=== PATIENT | female | born 1985 | race Caucasian/White ===

== ENCOUNTER 2022-01-28 19:01 | Inpatient (IN) ==
[2022-01-28] MEDS ORDERED: Metoclopramide 10 MG/2 ML VIAL IVP PRN (19:50)
[2022-01-28] MEDS ORDERED: Naloxone 0.4 MG/ML INJ IVP PRN (19:50)
[2022-01-28] MEDS ORDERED: *HR* Nalbuphine 10 MG/ML AMPUL IV PRN (19:50)
[2022-01-28] MEDS ORDERED: Famotidine 20 MG/2 ML VIAL IVP PRN (19:50)
[2022-01-28] MEDS ORDERED: Azithromycin 500 MG in 0.9 % Sodium Chloride 250 ML IVPB PRN (19:50)
[2022-01-28] MEDS ORDERED: Penicillin G Potassium 5,000,000 UNIT in 0.9 % Sodium Chloride Mini Bag 100 ML IVPB ONE (20:15)
[2022-01-28 20:20] LABS: Basophils % 0.3 %; Eosinophils # 0.1 K/mcL (0.0-0.6); Eosinophils % 0.7 %; Hematocrit 34.5 % (35.3-44.9); Hemoglobin 11.9 g/dL (11.5-15.4); Lymphocytes # 1.8 K/mcL (0.6-4.6); Lymphocytes % 16.5 %; Mean Corpuscular HGB Conc 34.5 g/dL (31.6-35.5); Mean Corpuscular Hemoglobin 29.7 pg (28.0-33.3); Mean Platelet Volume 10.9 fL (9.4-12.4); Monocytes # 0.7 K/mcL (0.0-1.3); Monocytes % 6.2 %; Neutrophils # 8.1 K/mcL (1.6-8.9); Platelet Count 256 K/mcL (140-400); Red Blood Count 4.01 M/mcL (3.82-4.97); Segmented Neutrophils % 75.3 %; White Blood Count 10.7 K/mcL (4.3-11.1)
[2022-01-28 20:39] LABS: Alanine Aminotransferase 8 Units/L (7-52); Aspartate Amino Transferase 13 Units/L (13-39); BUN/Creatinine Ratio 9 (6-26); Blood Urea Nitrogen 5 mg/dL (6-20); Glucose 97 mg/dL (70-105); Influenza A PCR Negative (Negative); Influenza B PCR Negative (Negative); Lactate Dehydrogenase 68 Units/L (140-271); Resp. Syncytial Virus PCR Negative (Negative); Uric Acid 4.4 mg/dL (2.3-7.6); eGFR For African Americans > 60 (> 60); eGFR For Non-African Americans > 60 (> 60)
[2022-01-28 20:40] LABS: SARS-CoV-2 by PCR (In House) Negative (Negative)
[2022-01-28] MEDS: Ringers Solution, Lactated 1,000 ML IVC SCH (20:59)
[2022-01-28] MEDS ORDERED: EPHEDrine 50 MG/ML VIAL IVP PRN (21:35)
[2022-01-28] MEDS: miSOPROStoL 25 MCG TABLET PO PRN (21:36)
[2022-01-28] MEDS: *HR* Metformin 500 MG TABLET PO SCH (22:24)
[2022-01-28] MEDS ORDERED: Calcium Gluconate 1,000 MG/10 ML VIAL IVP PRN (22:36)
[2022-01-28 23:33] LABS: Bacteria,Urine Few per hpf (None-Few); Bilirubin,Urine Negative (Negative); Blood,Urine Negative (Negative); Clarity,Urine Turbid (Clear); Color,Urine Yellow (Yellow); Glucose,Urine (UA) Normal (Normal); Ketones,Urine 20 mg/dL (Negative); Leukocyte Esterase,Urine Negative (Negative); Mucus,Urine Many per lpf (None-Few); Nitrite,Urine Negative (Negative); PH,Urine 6.5 pH Units (5.0-8.0); Protein,Urine 50 mg/dL (Neg-Trace); Specific Gravity,Urine 1.024 (1.010-1.025); Squamous Epithelial Cell,Urine Few per hpf (None-Few)
[2022-01-28 23:42] LABS: Amphetamine Screen,Urine Negative ng/mL (Cutoff=1000); Barbiturate Screen,Urine Negative ng/mL (Cutoff=200); Benzodiazepines Screen,Urine Negative ng/mL (Cutoff=200); Cannabinoid Screen,Urine Negative ng/mL (Cutoff = 50); Cocaine Screen,Urine Negative ng/mL (Cutoff= 300); Creatinine,Urine 220 mg/dL; Opiate Screen,Urine Negative ng/mL (Cutoff=300); Phencyclidine Screen,Urine Negative ng/mL (Cutoff=25); Protein/Creatinine Ratio,Urine 0.26 mg/mg (0.00-0.20)
[2022-01-29] MEDS: Magnesium Sulf 20 gm/SW 500mL 20 GM/500 ML IV.SOLN IVC SCH ×2 (00:03→09:58)
[2022-01-29] MEDS: miSOPROStoL 25 MCG TABLET PO PRN (01:45)
[2022-01-29] MEDS ORDERED: miSOPROStoL 25 MCG TABLET PO ONE (05:37)
[2022-01-29] MEDS: Penicillin G Potassium 2,500,000 UNIT/105 ML MLS IVPB SCH ×5 (08:56→21:03)
[2022-01-29] MEDS: Epidural Premix (fent/bupiv) 110 ML EP SCH ×3 (08:56→14:16)
[2022-01-29] MEDS: 0.9 % Sodium Chloride 1,000 ML IVC SCH (08:57)
[2022-01-29] MEDS: *HR* Metformin 500 MG TABLET PO SCH (09:04)
[2022-01-29] MEDS: Oxytocin 20 units/ LR 1000 mL 20 UNIT/1,000 ML BAG IVC SCH (09:49)
[2022-01-29] MEDS: Ondansetron 4 MG/2 ML VIAL IVP PRN (10:34)
[2022-01-29] MEDS: Acetaminophen 325 MG TABLET PO PRN ×2 (10:55→16:53)
[2022-01-29] MEDS: Ringers Solution, Lactated 1,000 ML IVC SCH ×2 (13:07→18:25)
[2022-01-29] MEDS ORDERED: Acetaminophen 325 MG TABLET PO STA (16:45)
[2022-01-29] MEDS ORDERED: Acetaminophen/Butalbital/CaffeineTABLET PO PRN (19:55)
[2022-01-29] MEDS ORDERED: *HR* Metformin 500 MG TABLET PO SCH (21:00)
[2022-01-29] MEDS ORDERED: Metoclopramide 10 MG/2 ML VIAL IVP ONE (21:10)
[2022-01-30] MEDS ORDERED: diazePAM 10 MG/2 ML SYRINGE IVP PRN (08:36)
[2022-01-30] MEDS: Ringers Solution, Lactated 1,000 ML IVC SCH ×2 (08:46→09:39)
[2022-01-30] MEDS: Magnesium Sulf 20 gm/SW 500mL 20 GM/500 ML IV.SOLN IVC SCH (08:46)
[2022-01-30] MEDS: Epidural Premix (fent/bupiv) 110 ML EP SCH ×2 (08:47→11:25)
[2022-01-30] MEDS: Penicillin G Potassium 2,500,000 UNIT/105 ML MLS IVPB SCH ×3 (08:47→19:25)
[2022-01-30] MEDS: Oxytocin 20 units/ LR 1000 mL 20 UNIT/1,000 ML BAG IVC SCH ×3 (08:55→19:28)
[2022-01-30] MEDS: Ondansetron 4 MG/2 ML VIAL IVP PRN (09:42)
[2022-01-30] MEDS ORDERED: Famotidine 20 MG/2 ML VIAL IVP STA (09:53)
[2022-01-30] MEDS ORDERED: *HR* FentaNYL (PF) 100 MCG/2 ML VIAL ONE ×3 (12:27→16:49)
[2022-01-30] MEDS ORDERED: Ropivacaine/PF 0.2% 20 ML VIAL ONE (12:27)
[2022-01-30] MEDS ORDERED: Ondansetron 4 MG/2 ML VIAL ONE (14:40)
[2022-01-30] MEDS ORDERED: Chloroprocaine 3%/PF 20 ML VIAL INFILT ONE (14:40)
[2022-01-30] MEDS ORDERED: Acetaminophen IV 1,000 MG/100 ML BAG IVPB ONE (14:46)
[2022-01-30] MEDS ORDERED: CeFAZolin 2,000 MG/120 ML BAG IVPB ONE (15:00)
[2022-01-30] MEDS ORDERED: Ringers Solution, Lactated 1,000 ML ONE (15:19)
[2022-01-30] MEDS ORDERED: Lidocaine/EPI 1:200k 2% PF 20 ML VIAL ONE (15:24)
[2022-01-30] MEDS ORDERED: *HR* Morphine Sulfate/PF 10 MG/10 ML AMPUL ONE (15:35)
[2022-01-30] MEDS ORDERED: *HR* Phenylephrine 10 MG/ML VIAL ONE (15:46)
[2022-01-30] MEDS ORDERED: Ondansetron 4 MG/2 ML VIAL IVP PRN ×2 (16:00→17:03)
[2022-01-30] MEDS ORDERED: *HR* HYDROmorphone PF 0.5 MG/0.5 ML SYRINGE IVP PRN (16:00)
[2022-01-30] MEDS ORDERED: Ketamine *HR* 500 MG/10 ML MDV ONE (16:14)
[2022-01-30] MEDS ORDERED: *HR* Midazolam HCl 2 MG/2 ML VIAL ONE (16:31)
[2022-01-30] MEDS ORDERED: Ketorolac 30 MG/ML VIAL ONE (16:49)
[2022-01-30] MEDS ORDERED: Ringers Solution, Lactated 1,000 ML IVC SCH (17:03)
[2022-01-30] MEDS ORDERED: Metoclopramide 10 MG/2 ML VIAL IVP PRN (17:03)
[2022-01-30] MEDS ORDERED: Simethicone 80 MG TAB.CHEW PO PRN (17:03)
[2022-01-30] MEDS ORDERED: Oxytocin 20 units/ LR 1000 mL 20 UNIT/1,000 ML BAG IVC SCH (17:03)
[2022-01-30] MEDS ORDERED: Rho Immune Globulin 1,500 UNIT SYRINGE IM ONE (17:03)
[2022-01-30] MEDS: Acetaminophen 325 MG TABLET PO SCH (19:28)
[2022-01-30] MEDS: Ibuprofen 600 MG TABLET PO SCH (22:05)
[2022-01-31] MEDS: *HR* OxyCODONE Immed Rel 5 MG TABLET PO PRN ×3 (00:44→22:26)
[2022-01-31] MEDS: Acetaminophen 325 MG TABLET PO SCH ×3 (00:44→19:52)
[2022-01-31 04:00] LABS: Basophils % 0.2 %; Eosinophils % 0.2 %; Immature Granulocytes % 0.7 % (0-4); Lymphocytes # 1.9 K/mcL (0.6-4.6); Lymphocytes % 10.7 %; Mean Corpuscular HGB Conc 34.5 g/dL (31.6-35.5); Mean Corpuscular Hemoglobin 30.3 pg (28.0-33.3); Mean Corpuscular Volume 87.9 fL (83.0-100.0); Mean Platelet Volume 10.9 fL (9.4-12.4); Monocytes # 1.1 K/mcL (0.0-1.3); Monocytes % 6.1 %; Neutrophils # 14.2 K/mcL (1.6-8.9); Platelet Count 230 K/mcL (140-400); Red Cell Distribution Width 14.5 % (11.5-14.5); Segmented Neutrophils % 82.1 %
[2022-01-31] MEDS: Ibuprofen 600 MG TABLET PO SCH ×4 (04:07→22:20)
[2022-01-31 04:10] LABS: White Blood Count 17.3 K/mcL (4.3-11.1)
[2022-01-31] MEDS: Prenatal Vit/FA 1 EACH TABLET PO SCH (08:05)
[2022-02-01] MEDS: Acetaminophen 325 MG TABLET PO SCH (03:49)
[2022-02-01] MEDS: Ibuprofen 600 MG TABLET PO SCH (04:18)
[2022-02-01 07:36] VITALS: BP 124/65; PULSE 80; TEMP 97.7; O2SAT 95
[2022-02-01] MEDS ORDERED: *HR* Metformin 500 MG TABLET PO SCH (08:00)
[2022-02-01] MEDS: *HR* OxyCODONE Immed Rel 5 MG TABLET PO PRN (09:09)
[2022-02-01] MEDS: Prenatal Vit/FA 1 EACH TABLET PO SCH (09:09)
== END 2022-02-01 12:50 | disposition home or self-care (01) | DRG 540 ==
LOC: 1NENULAB 19:01 → 1NENUOBS 01-30 01:05
PROVIDERS: ADMIT Student in an Organized Health Care Education/Training Program; ATTEND Student in an Organized Health Care Education/Training Program

== ENCOUNTER → 2022-02-05 23:55 | Observation (INO) ==
[2022-02-05 19:30] LABS: Basophils # 0.1 K/mcL (0.0-0.2); Basophils % 0.5 %; Eosinophils # 0.2 K/mcL (0.0-0.6); Eosinophils % 1.6 %; Hematocrit 30.6 % (35.3-44.9); Hemoglobin 10.4 g/dL (11.5-15.4); Immature Granulocytes % 2.3 % (0-4); Lymphocytes # 2.1 K/mcL (0.6-4.6); Lymphocytes % 16.2 %; Mean Corpuscular Hemoglobin 30.1 pg (28.0-33.3); Mean Corpuscular Volume 88.7 fL (83.0-100.0); Monocytes # 0.8 K/mcL (0.0-1.3); Monocytes % 6.3 %; Neutrophils # 9.6 K/mcL (1.6-8.9); Platelet Count 412 K/mcL (140-400); Red Blood Count 3.45 M/mcL (3.82-4.97); Red Cell Distribution Width 13.7 % (11.5-14.5); Segmented Neutrophils % 73.1 %; White Blood Count 13.1 K/mcL (4.3-11.1)
[2022-02-05 19:38] LABS: Protein/Creatinine Ratio,Urine 0.27 mg/mg (0.00-0.20)
[2022-02-05 19:48] LABS: Alanine Aminotransferase 11 Units/L (7-52); Aspartate Amino Transferase 12 Units/L (13-39); BUN/Creatinine Ratio 15 (6-26); Blood Urea Nitrogen 9 mg/dL (6-20); Lactate Dehydrogenase 86 Units/L (140-271); Uric Acid 4.9 mg/dL (2.3-7.6); eGFR For African Americans > 60 (> 60); eGFR For Non-African Americans > 60 (> 60)
== END | disposition home or self-care (01) ==
LOC: 1NENULAB
PROVIDERS: ADMIT Obstetrics & Gynecology; ATTEND Obstetrics & Gynecology